=== PATIENT | female | born 1985 | race Asian ===

== ENCOUNTER 2016-11-18 11:16 | Emergency (ER) | payer OTHER ==
[~2016-11-18 11:16] MED LIST: COLACE PO; DEPO-PROVE150 MG/1 M IM; FOLIC ACID PO; FOLIC ACID1 MG PO; KEPPRA1000 MG PO; LORTAB 7.5-3251 EACH PO; MILK OF MAGNESIA PO; TEGRETOL PO; VIMPAT50 MG PO; VITAMIN B-121000 MCG PO; VITAMIN B12-FO1 EACH PO
[2016-11-18 16:54] LABS: URINE SOURCE CLEAN CATCH
[2016-11-18 17:03] LABS: URINE APPEARANCE CLEAR; URINE BILIRUBIN NEG (NEG); URINE BLOOD NEG (NEG); URINE COLOR YELLOW; URINE GLUCOSE NEG (NEG); URINE KETONE TRACE (NEG); URINE LEUKOCYTE ESTERASE NEG (NEG); URINE NITRATE NEG (NEG); URINE PROTEIN NEG (NEG); URINE SPECIFIC GRAVITY 1.011 (1.003-1.035); URINE UROBILINOGEN 0.2 MG/DL (NEG)
[2016-11-18 17:17] LABS: CULTURE INDICATED? NO
== END 2016-11-18 18:40 | disposition home or self-care (01) ==
LOC: CED 11:16
PROVIDERS: Student in an Organized Health Care Education/Training Program
DX: O99.89 Other specified diseases and conditions complicating pregnancy, childbirth and the puerperium (principal); R51 Headache; O21.2 Late vomiting of pregnancy; Z3A.36 36 weeks gestation of pregnancy
CPT/HCPCS: 81003; 99284